=== PATIENT | male | born 1985 | race Caucasian/White ===

== ENCOUNTER 2018-04-10 16:10 | Emergency (ER) | payer OTHER ==
[2018-04-10 16:20] VITALS: BP 132/83
--- NOTE | 2018-04-10 16:49 | ED Physician Documentation ---
PD HPI UPPER EXT INJURY - Stated complaint Stated Complaint: R HAND LAC - Chief complaint Chief Complaint: Laceration - History obtained from History obtained from: Patient - History of Present Illness Location: Right, Finger (little finger tip at side of nail.) Type of injury: Laceration (from knife at home, that was sitting out and he struck finger into it while moving something.) Where injury occurred: Home Timing - details: Abrupt onset, Still present Improved by: Rest (it bled well and he wasn't sure if it needed sutures.) Worsened by: Palpating Review of Systems Neurologic: denies: Focal weakness, Numbness PD PAST MEDICAL HISTORY - Past Medical History Past Medical History: No - Past Surgical History Past Surgical History: Yes - Present Medications Home Medications: Ambulatory Orders Medication Instructions Recorded Confirmed No Known Home Medications [No 04/10/18 04/10/18 Known Home Medications] - Allergies Allergies/Adverse Reactions: Allergies Allergy/AdvReac Type Severity Reaction Status Date / Time No Known Drug Allergies Allergy Verified 04/10/18 16:19 - Social History Does the pt smoke?: No Smoking Status: Never smoker Does the pt drink ETOH?: No Does the pt have substance abuse?: No - Immunizations Immunizations are current?: Yes - POLST Patient has POLST: No PD ED PE NORMAL - Vitals Vital signs reviewed: Yes - General General: Alert and oriented X 3, No acute distress, Well developed/nourished - Extremities Extremities: Other (right little finger with 1 cm lac at edge of nail, but not involving it. No FB and does not go deep. Not near IP joint. ) - Neuro Neuro: Alert and oriented X 3, No motor deficit, No sensory deficit, Normal speech Results - Vitals Vitals: Vital Signs - 24 hr 04/10/18 16:17 Temperature 36.8 C Heart Rate 84 Respiratory 18 Rate Blood Pressure 132/83 H O2 Saturation 97 Oxygen O2 Source Room air Procedures - Laceration (location) finger Length in cm: 1 Wound type: Linear, Into subcut fat, Clean Neurovascular status: Sensory intact, Motor intact Wound Preparation: Wound explored. No: FB identified Skin layer closure: Dermabond, Steri strips Other: Patient tolerated well, No complications, Tetanus UTD Complexity: Simple PD MEDICAL DECISION MAKING - ED course Complexity details: considered differential (closed enough to be able to treat with steristrips and glue. ), d/w patient - Sepsis Event Vital Signs: Vital Signs - 24 hr 04/10/18 16:17 Temperature 36.8 C Heart Rate 84 Respiratory 18 Rate Blood Pressure 132/83 H O2 Saturation 97 Oxygen O2 Source Room air Departure - Departure Disposition: 01 Home, Self Care Clinical Impression: Finger laceration Qualifiers: Encounter type: initial encounter Finger: little finger Damage to nail status: without damage Foreign body presence: without foreign body Laterality: right Qualified Code(s): S61.216A - Laceration without foreign body of right little finger without damage to nail, initial encounter Condition: Stable Record reviewed to determine appropriate education?: Yes Instructions: ED Laceration Hand Follow-Up: REED LOPEZ MD [Primary Care Provider] - Comments: Keep the wound clean and dry and allow the Steri-Strips to fall off on their own after several days. Tylenol or ibuprofen if needed for pain. Protect the area with Band-Aid or glove as needed depending upon activity. Recheck if signs of infection. Discharge Date/Time: 04/10/18 17:38
== END 2018-04-10 17:38 | disposition home or self-care (01) ==
LOC: ED 16:10
DX: S61.216A Laceration without foreign body of right little finger without damage to nail, initial encounter (principal); W26.0XXA Contact with knife, initial encounter; Y92.000 Kitchen of unspecified non-institutional (private) residence as the place of occurrence of the external cause
CPT/HCPCS: 12001; 80053; 83690; 85025; 99283

== ENCOUNTER 2018-06-01 23:18 | Emergency (ER) | payer OTHER ==
[2018-06-01] MEDS ORDERED: PROPARACAINE 0.5% OPHTH DROPS 15 ML EACHEYE STA (23:30)
[2018-06-01] MEDS ORDERED: ERYTHROMYCIN OPHTH OINT 1 GM TUBE RIGHTEYE STA (23:54)
--- NOTE | 2018-06-01 23:57 | ED Physician Documentation ---
PD HPI OPHTHO - Stated complaint Stated Complaint: RT EYE PAIN - Chief complaint Chief Complaint: Heent - History obtained from History obtained from: Patient - History of Present Illness Timing - duration: Days (2) Timing - details: Abrupt onset Severity Comments: moderate Location: Right Quality / character: Itching, Other (Foreign body sensation) Associated symptoms: Redness, Tearing, FB sensation. 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 The patient's symptoms started 2 days ago and have progressed.The patient also attempted to remove the foreign body at home). No: Exposed to conjunctivitis, Wears glasses, Wears contacts Similar symptoms before: Has not had sx before Recently seen: Not recently seen Review of Systems Constitutional: denies: Fever Eyes: reports: Irritation. denies: Loss of vision, Decreased vision, Photophobia Ears: denies: Ear pain Throat: denies: Sore throat GI: denies: Nausea Musculoskeletal: denies: Neck pain Immunocompromised: denies: Chemotherapy PD PAST MEDICAL HISTORY - Past Surgical History Past Surgical History: Yes - Present Medications Home Medications: Ambulatory Orders Medication Instructions Recorded Confirmed Erythromycin Base [Erythromycin 1 gm OP BID #1 oint...g. 06/01/18 Ophthalmic Ointment] - Allergies Allergies/Adverse Reactions: Allergies Allergy/AdvReac Type Severity Reaction Status Date / Time No Known Drug Allergies Allergy Verified 04/10/18 16:19 - Social History Does the pt smoke?: No Smoking Status: Never smoker Does the pt drink ETOH?: No Does the pt have substance abuse?: No - Immunizations Immunizations are current?: Yes - POLST Patient has POLST: No PD ED PE NORMAL - General General: Alert and oriented X 3, No acute distress, Well developed/nourished - HEENT HEENT: Atraumatic, PERRL, EOMI, Moist mucous membranes - Derm Derm: Normal color - Neuro Neuro: Alert and oriented X 3, Normal speech - Psych Psych: Normal mood PD ED PE EXPANDED - Eyes Eyes: Injected conj/sclera, Other (The patient has a small piece of metal at the 6:00 portion of the eye. There is no Bora sign, the eye is injected. Currently no rest ring). No: No eyelid FB (everted) Results - Vitals Vitals: Vital Signs - 24 hr 06/01/18 23:22 Temperature 36.7 C Heart Rate 75 Respiratory 18 Rate Blood Pressure 139/77 H O2 Saturation 99 Oxygen O2 Source Room air Procedures - FB removal FB location: Other (Right Eye) FB removal preparation: Local anesthesia-specify Removal method: Other (I used a wet Q-tip and gently attempted to remove the metal foreign body. 70% of the piece of metal was removed, unfortunately there was a small piece of metal still remaining which I was unable to remove.) FB removal aftercare: Partially removed PD MEDICAL DECISION MAKING - ED course ED course: The patient has a piece of metal embedded in his eye, 70% of the metal was removed but unfortunately a small piece does remain. Unfortunately, this hospital does not have ophthalmology coverage to discuss the case with and to arrange for follow-up tomorrow. [place] active [place] The patient will be given a dose of erythromycin ointment for the eye to help soften the tissue. A prescription will also be given. I have given the names of the local storehouse clerk in the area. I advised follow-up with ophthalmology in 1-2 days. I discussed warning signs and recommended returning to the emergency department immediately for worsening or any concerns - Sepsis Event Vital Signs: Vital Signs - 24 hr 06/01/18 23:22 Temperature 36.7 C Heart Rate 75 Respiratory 18 Rate Blood Pressure 139/77 H O2 Saturation 99 Oxygen O2 Source Room air Departure - Departure Disposition: 01 Home, Self Care Clinical Impression: Eye foreign body Qualifiers: Encounter type: initial encounter Laterality: unspecified laterality Qualified Code(s): T15.90XA - Foreign body on external eye, part unspecified, unspecified eye, initial encounter Condition: Good Instructions: Foreign Object Cornea Follow-Up: Quentin Woody MD [Provider Admit Priv/Credential] - Brandt Jain MD [Provider Admit Priv/Credential] - Miguel Johansen MD [Provider Admit Priv/Credential] - Prescriptions: Erythromycin Base [Erythromycin Ophthalmic Ointment] 1 gm OP BID #1 oint...g. Comments: Please follow-up with ophthalmology in the next 1-2 days for removal of the rest of the metal retained object in your eye. [place] of the storehouse clerk listed. Please return to the emergency department immediately for worsening or any concerns
[2018-06-02 00:22] VITALS: BP 130/70
== END 2018-06-02 00:21 | disposition home or self-care (01) ==
LOC: ED 23:18
DX: T15.91XA Foreign body on external eye, part unspecified, right eye, initial encounter (principal); W26.8XXA Contact with other sharp object(s), not elsewhere classified, initial encounter; Y93.89 Activity, other specified
CPT/HCPCS: 65210; 99283; J3490

== ENCOUNTER 2019-03-06 20:39 | Emergency (ER) | payer OTHER ==
[2019-03-06] MEDS ORDERED: BUFFERED LIDOCAINE 10 ML SYRINGE SUBQ STA (20:45)
--- NOTE | 2019-03-06 20:46 | ED Physician Documentation ---
PD HPI UPPER EXT INJURY - Stated complaint Stated Complaint: R INDEX FINGER LAC - History obtained from History obtained from: Patient - History of Present Illness Location: Right (Right-handed gentleman who is up-to-date on tetanus cut his ri ght index finger with an ax had at home just prior to arrival.) Review of Systems Constitutional: reports: Reviewed and negative Nose: reports: Reviewed and negative Throat: reports: Reviewed and negative Cardiac: reports: Reviewed and negative PD PAST MEDICAL HISTORY - Past Surgical History Past Surgical History: Yes - Present Medications Home Medications: Ambulatory Orders Medication Instructions Recorded Confirmed Erythromycin Base [Erythromycin 1 gm OP BID #1 oint...g. 06/01/18 Ophthalmic Ointment] - Allergies Allergies/Adverse Reactions: Allergies Allergy/AdvReac Type Severity Reaction Status Date / Time No Known Drug Allergies Allergy Verified 03/06/19 20:46 - Social History Does the pt smoke?: No Smoking Status: Never smoker Does the pt drink ETOH?: No Does the pt have substance abuse?: No - Immunizations Immunizations are current?: Yes - POLST Patient has POLST: No PD ED PE NORMAL - Vitals Vital signs reviewed: Yes - General General: Alert and oriented X 3, No acute distress - Extremities Extremities: Other (On the pulp of the right index finger there is a deep 2 cm laceration. His Sensation is intact distal on both sides distal to this. Tendon function will be checked in suture repair subsequent to anesthetic.) - Neuro Neuro: Alert and oriented X 3, Normal speech - Psych Psych: Normal mood, Normal affect Results - Vitals Vitals: Vital Signs - 24 hr 03/06/19 20:45 Temperature 36.5 C Heart Rate 89 Respiratory 18 Rate Blood Pressure 149/100 H O2 Saturation 97 Oxygen O2 Source Room air Procedures - Laceration (location) R 2nd finger Length in cm: 2 Wound type: Linear, Into subcut fat Neurovascular status: Sensory intact, Motor intact, Vascular intact Tendon involvement: Tendon intact Anesthesia: Lidocaine 1%, With bicarb Wound Preparation: Hibiclens, Irrigated copiously NS Skin layer closure: Nylon, Interrupted, Size #-0 - enter number (4-0), Sutures - enter # (8) Other: Tetanus UTD Complexity: Simple Departure - Departure Disposition: 01 Home, Self Care Clinical Impression: Finger laceration Qualifiers: Encounter type: initial encounter Finger: index finger Damage to nail status: without damage Foreign body presence: without foreign body Laterality: right Qualified Code(s): S61.210A - Laceration without foreign body of right index finger without damage to nail, initial encounter Condition: Good Record reviewed to determine appropriate education?: Yes Instructions: ED Laceration Hand Comments: Come back for any signs of infection which would include: Redness, swelling, drainage, increased pain, or fevers. You can wash it soap and water. Keep it covered and moist with bacitracin ointment which is available over the counter; avoid neosporin. Follow-up with your physician in 14 days for suture removal.
[2019-03-06 20:47] VITALS: BP 149/100
== END 2019-03-06 21:13 | disposition home or self-care (01) ==
LOC: ED 20:39
DX: S61.210A Laceration without foreign body of right index finger without damage to nail, initial encounter (principal); W27.0XXA Contact with workbench tool, initial encounter; Y93.89 Activity, other specified; Y92.009 Unspecified place in unspecified non-institutional (private) residence as the place of occurrence of the external cause
CPT/HCPCS: 12001; 99282; 99283

== ENCOUNTER 2020-02-12 13:58 | Emergency (ER) | payer OTHER ==
[2020-02-12 14:08] VITALS: BP 150/89
--- NOTE | 2020-02-12 14:28 | ED Physician Documentation ---
History of Present Illness - Stated complaint Stated Complaint: LT THUMB LAC - Chief complaint Chief Complaint: Laceration - History obtained from History obtained from: Patient - History of Present Illness Timing: Today Pain level max: 0 Pain level now: 0 - Additonal information Additional information: 34-year-old male with a left thumb laceration on a band saw today. Bleeding controlled. Tetanus up-to-date. Patient is right-handed. Nothing makes it better or worse. Review of Systems Constitutional: denies: Fever, Chills Skin: denies: Rash Musculoskeletal: denies: Neck pain, Back pain Neurologic: denies: Headache PD PAST MEDICAL HISTORY - Past Medical History Past Medical History: No - Past Surgical History Past Surgical History: Yes - Present Medications Home Medications: Ambulatory Orders Medication Instructions Recorded Confirmed No Known Home Medications 02/12/20 02/12/20 - Allergies Allergies/Adverse Reactions: Allergies Allergy/AdvReac Type Severity Reaction Status Date / Time No Known Drug Allergies Allergy Verified 02/12/20 14:06 - Social History Does the pt smoke?: No Smoking Status: Never smoker Does the pt drink ETOH?: No Does the pt have substance abuse?: No - Immunizations Immunizations are current?: Yes - POLST Patient has POLST: No PD ED PE NORMAL - Vitals Vital signs reviewed: Yes - General General: Alert and oriented X 3, No acute distress - HEENT HEENT: Moist mucous membranes - Neck Neck: Supple, no meningeal sign - Derm Derm: Warm and dry - Extremities Extremities: Other (L thumb - 1 cm laceration to pad of thumb. NVI. linear. ) - Neuro Neuro: Alert and oriented X 3 Results - Vitals Vitals: Vital Signs - 24 hr 02/12/20 14:07 Temperature 36.5 C Heart Rate 87 Respiratory 15 Rate Blood Pressure 150/89 H O2 Saturation 98 Oxygen O2 Source Room air Procedures - Laceration (location) L thumb laceration Length in cm: 1 Wound type: Linear, Into subcut fat, Clean Neurovascular status: Sensory intact, Motor intact, Vascular intact Wound Preparation: Irrigated copiously NS, Wound explored, To the base Skin layer closure: Dermabond, Other (T ring system) Other: Patient tolerated well, Tetanus UTD Complexity: Simple PD MEDICAL DECISION MAKING - ED course Complexity details: considered differential, d/w patient ED course: Left thumb laceration repaired. Tolerated well. Neurovascularly intact. Tetanus up-to-date. Warnings of infection and instructions on wound care given at bedside. Also counseled on how to minimize scarring. Patient counseled regarding signs and symptoms for which I believe and urgent re-evaluation would be necessary. Patient with good understanding of and agreement to plan and is comfortable going home at this time This document was made in part using voice recognition software. While efforts are made to proofread this document, sound alike and grammatical errors may occur. Departure - Departure Disposition: 01 Home, Self Care Clinical Impression: Laceration of left thumb Qualifiers: Encounter type: initial encounter Damage to nail status: without damage Foreign body presence: without foreign body Qualified Code(s): S61.012A - Laceration without foreign body of left thumb without damage to nail, initial encounter Condition: Good Instructions: ED Laceration Hand Follow-Up: REED LOPEZ MD [Primary Care Provider] - As Needed Comments: Return if you worsen. The bandages should fall off within 10 to 14 days. If they fall off before this that is okay. There may be some slight oozing today. Do not apply ointment as this may dissolve the glue. Return if you notice redness, swelling or drainage from the wound. Discharge Date/Time: 02/12/20 14:46
== END 2020-02-12 14:46 | disposition home or self-care (01) ==
LOC: ED 13:58
DX: S61.012A Laceration without foreign body of left thumb without damage to nail, initial encounter (principal); W29.8XXA Contact with other powered hand tools and household machinery, initial encounter
CPT/HCPCS: 12001; 99282; 99284

== ENCOUNTER 2023-01-08 09:16 | Outpatient (CLI) | payer OTHER ==
[2023-01-08 10:05] VITALS: BP 130/80
--- NOTE | 2023-01-08 10:05 | SLEEP CARE CONSULTATION ---
Information from patient questionnaire entered by Irina Vidales. I have reviewed and concur with the information entered by Irina Vidales. This document represents the service I personally performed and the decisions made by me, Ling Zayas ARNP. History of Present Illness Service Date and Time: 01/08/2023 0916 Reason for Visit: New patient, Previously diagnosed sleep apnea Chief Complaint: reports: Snoring, Observed pauses in breathing, Fatigue, Frequent awakenings at night Date of Onset: 10YRS Usual bedtime: 9-10 PM Time it takes to fall asleep: 5 minutes Snores at night: Yes Observed to quit breathing while asleep: Yes Sleeps alone due to snoring: No Number of times waking at night: SEVERAL, 1-2 minimum Reasons for waking at night: reports: Snoring, Gasping for air, Other (NOISE). denies: Choking Toss, Turn, or Twitch while sleeping: Yes ( has noted twitching of his feet) Recalls having dreams: No (very rarely) Usually gets out of bed at: 530AM Feels refreshed in the morning: No Morning headache: No Sleepy or fatigued during the day: Yes Ever fallen asleep while driving: No Takes day naps: No Dreams during day naps: No Prior sleep studies: Yes Year and Where: 2012 [facility] Additional HPI information: I had the pleasure of seeing JUDY ALDANA today regarding the possibility of him having a sleep disorder. His current complaints are fatigue, frequent night awakenings, observed pauses in breathing and snoring. He had a sleep study and states they told him he has about 16 episodes an hour. He was never set up on a PAP machine. He comes back in because of his snoring, his waking him up to turn over and he is falling asleep in his chair watching tv most nights. His has noticed his is gasping in his sleep and it is bothering her sleep. - Parasomnia Symptoms Ever been unable to move upon waking from sleep: No Walks in sleep: No Talks in sleep: No Ever acted out dreams in sleep: Yes (fights in sleep, punching/kicking; usually only when deployed and not home) Ever felt weak in the knees when startled or emotional: No Bothered by creepy, crawly, restless sensations in legs: Yes (usually closer to bedtime, feels anxious because legs feel restless) Problems with memory or concentration: No Subjective Initial [place] Sleepiness Scale score: 16 (01/08/23) Past Medical History Past Medical History: reports: Anxiety, Depression, GERD, Other (eosinophlic esophagitis, recent Upper endoscopy with balloon procedure 2 wks ago; occasional activity induced asthma) Social History 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 Patient is and lives in [place]. Have you smoked in the past 12 months: No Alcohol use: Yes Alcohol amount and frequency: 1-2 BEERS 1-2 A WEEK Caffeine use: Yes Caffeine amount and frequency: 7 CANS DAILY Family History Family history of sleep disordered breathing: No Allergies and Home Medications Known drug allergies: No Drug allergies reviewed: Yes Home medication list reviewed: Yes Allergy and home medication list: Allergies No Known Drug Allergies Allergy (Verified 01/07/23 16:32) Medications: Sertraline 50 mg daily Omeprazole 40 mg daily Clobetasol Review of Systems Weight gain over past 5 years: 5-10 Cardiovascular: denies: high blood pressure Respiratory: reports: wheeze Gastrointestinal: reports: heartburn, difficulty swallowing Neurological: denies: headaches, head trauma Psychiatric: reports: anxiety, depression Ear/Nose/Throat: reports: wisdom teeth removed. denies: tonsillectomy Endocrine: denies: thyroid disease Musculoskeletal: reports: joint pain (no constant), back pain (no constant) Immunologic: reports: allergies to food or environment (occasional seasonal) Physical Exam Vital signs obtained and entered by: IRINA Neil MA Blood Pressure: 130/80 (LEFT ARM) Cuff size: regular Heart Rate: 77 O2 Saturation: 97 Height: 6 ft Weight: 215 lb Body Mass Index: 29.1 BMI Classification: Overweight Neck circumference: 16.5 Mouth and throat: narrow oropharynx Soft palate: normal Hard palate: normal Uvula: normal Uvula visualization: 25% Mallampati Class III Tongue: enlarged in size with teeth gibson on lateral edges Tonsils: small Neck: normal w/o lymphadenopathy or thyromegaly Heart: regular rate and rhythm Lungs: clear bilaterally Impression and Plan 1. Suspected Obstructive Sleep Apnea-Hypopnea Syndrome, as previously diagnosed and as suggested by a history of loud and irregular snoring, observed cessation of breath while asleep, gasping or choking in sleep, frequent awakening during the night, unrefreshed sleep, and excessive daytime sleepiness. I recommend proceeding to polysomnography to confirm the diagnosis and to assess severity. If the patient has significant sleep disordered breathing, a manual CPAP titration study will also be performed to find the optimal treatment pressure. I informed the patient of what the sleep studies involve and after some discussion, obtained agreement to proceed. The pathophysiology of obstructive sleep apnea-hypopnea syndrome was discussed with the patient and health risks of cardiovascular and cerebrovascular disease if not treated. Risks of drowsy driving discussed in detail and patient advised to avoid long distance driving and to parts puller at the first sign of drowsiness. Patient agreed to plan. * Schedule polysomnography * Avoid long distance driving or driving when feeling sleepy. * Avoid alcohol, sedative and muscle relaxant around bedtime. * Attempt to lose weight. * Review instructions provided by trained office staff on how to prepare for the sleep study. * Return for follow-up after sleep study completed. Counseling Topics: Weight loss health impact Visit Type: In Office Time Spent with Patient (minutes): 30 Provider Statement: I spent 100% of the Face to Face Visit with the patient with greater than 50% spent counseling the patient and coordination of care.
== END 2023-01-08 09:17 | disposition home or self-care (01) ==
LOC: SC 09:16
PROVIDERS: ATTEND Nurse Practitioner Family
DX: R06.83 Snoring (principal); G47.8 Other sleep disorders; R06.81 Apnea, not elsewhere classified; G47.10 Hypersomnia, unspecified; R53.83 Other fatigue; F32.A Depression, unspecified; E66.3 Overweight; Z68.29 Body mass index [BMI] 29.0-29.9, adult
CPT/HCPCS: 99203; 99212

== ENCOUNTER 2023-01-28 20:24 | Outpatient (CLI) | payer OTHER | END 2023-01-28 20:25 | disposition home or self-care (01) | LOC: SC 20:24 | PROVIDERS: ATTEND Nurse Practitioner Family | DX: G47.61 Periodic limb movement disorder (principal) | CPT/HCPCS: 95810 ==

== ENCOUNTER 2023-02-20 15:14 | Outpatient (CLI) | payer OTHER ==
[2023-02-20 15:50] VITALS: BP 126/74
--- NOTE | 2023-02-20 15:50 | SLEEP CARE CONSULTATION ---
Information from patient questionnaire entered by Saniya Vidales. I have reviewed and concur with the information entered by Saniya Vidales. This document represents the service I personally performed and the decisions made by , Ling Zayas ARNP. History of Present Illness Service Date and Time: 02/20/2023 151 Initial [place] Sleepiness Scale score: 16 (01/08/23) Current [place] Sleepiness Scale score: 9 (02/20/23) Additional HPI information: JUDY ALDANA returns for follow up and results of the recently performed polysomnography. The patient was informed of the following findings: No significant sleep disordered breathing with an average AHI of 2.9 and aly oxygen saturation of 89%. Supine AHI elevated at 5.8 and moderate PLMs not contributing to sleep fragmentation. I explained the pathophysiology behind obstructive sleep apnea. Patient does not have sleep apnea and was advised how weight gain could increase the risk of developing sleep apnea in the future. I strongly encouraged the patient to lose weight. Patient does not have significant sleep disordered breathing but has elevated AHI in supine position so advised positional therapy. Methods to achieve positional management therapy were discussed; such as, positioning with pillows, wearing a T-shirt with tennis balls sewn into the back or commercially available products. Patient has light to moderate snoring. Snoring can be reduced by weight loss. Weight loss is best achieved with diet consult. Patient instructed to contact PCP for referral. Snoring can also be treated with an oral appliance from a dentist. Advised to check insurance coverage. In addition, an ENT evaluation can be do to see if other treatment is indicated. Patient was cautioned about risks of drowsy driving until sleepiness symptoms resolve. Sleep Study - Results Type of Sleep Study: Polysomnography (COMPLETED 01/28/23) Prior sleep studies: Yes Year and Where: 2012 [facility] Polysomnography/Home Sleep Study results: IMPRESSION: The quality of the study is good. The patient had normal sleep efficiency. Except for mild sleep fragmentation, the sleep architecture was normal as well. Respiratory monitoring showed no significant sleep disordered breathing (AHI = 2.9) or hypoxia (aly oxygen saturation of 89%). The few respiratory events occurred almost exclusively during supine sleep (supine AHI = 5.8; non-supine = 1.71). Snore was light to moderate in intensity. There was moderate periodic leg movement of sleep not contributing to the sleep fragmentation. Cardiac rhythm was normal sinus rhythm without significant arrhythmia. No abnormal behavior (parasomnia) observed during the night. Allergies and Home Medications Known drug allergies: No Drug allergies reviewed: Yes Home medication list reviewed: Yes (no changes) Allergy and home medication list: Allergies No Known Drug Allergies Allergy (Verified 02/19/23 15:12) Review of Systems Review of systems same as previous: Yes (no changes) Physical Exam Vital signs obtained and entered by: SANIYA Neil MA Blood Pressure: 126/74 (LEFT ARM ) Cuff size: regular Heart Rate: 83 O2 Saturation: 97 Height: 6 ft Weight: 216 lb 12.8 oz Body Mass Index: 29.4 BMI Classification: Overweight Impression and Plan 1. Snoring but no significant sleep disordered breathing. However, patient has an elevated supine AHI and should avoid sleeping supine. 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 After some discussion and because his supine AHI is elevated, I will have him do a HST to get a measurement when he is in his own sleeping environment to see if his results are the same or different. Patient advised that often weight loss will reduce snoring as well as apnea risk. I recommend proceeding to polysomnography to confirm the diagnosis and to assess severity. I obtained agreement to proceed. The pathophysiology of obstructive sleep apnea- hypopnea syndrome was discussed with the patient and health risks of cardiovascular and cerebrovascular disease if not treated. Risks of drowsy driving discussed in detail and patient advised to avoid long distance driving and to line puller at the first sign of drowsiness. Patient agreed to plan. 2. Periodic limb movement, moderate, that did not fragment patients sleep. Periodic limb movement of sleep (PLMS) is characterized by episodes of repetitive limb movements that occur during sleep and usually involve the lower limbs. The etiology is unknown. Caffeine can aggravate PLMS and should be avoided. Sleep hygiene methods can also improve sleep as well as lifestyle changes such as regular exercise. Patient was advised that no treatment is needed at this time. If symptoms increase, then further evaluation is indicated. * HST to verify diagnosis and severity * Attempt to lose weight * Avoid sleeping supine * Avoid alcohol consumption near bedtime * The patient is cautioned about driving until sleepiness is completely resolved. * Return after HST for follow up. Counseling Topics: Weight loss health impact Visit Type: In Office Time Spent with Patient (minutes): 20 Provider Statement: I spent 100% of the Face to Face Visit with the patient with greater than 50% spent counseling the patient and coordination of care.
== END 2023-02-20 15:15 | disposition home or self-care (01) ==
LOC: SC 15:14
PROVIDERS: ATTEND Nurse Practitioner Family
DX: G47.33 Obstructive sleep apnea (adult) (pediatric) (principal); E66.3 Overweight; Z68.29 Body mass index [BMI] 29.0-29.9, adult
CPT/HCPCS: 99212; 99213

== ENCOUNTER 2023-05-01 08:30 | Outpatient (CLI) | payer OTHER | END 2023-05-01 08:31 | disposition home or self-care (01) | LOC: SC 08:30 | PROVIDERS: ATTEND Nurse Practitioner Family | DX: G47.33 Obstructive sleep apnea (adult) (pediatric) (principal); R09.02 Hypoxemia | CPT/HCPCS: 95806 ==